=== PATIENT | female | born 1940 | race Caucasian/White ===

== ENCOUNTER 2024-02-02 09:33 | Emergency (ER) | payer OTHER ==
[~2024-02-02] VITALS: Ht 165.1 cm; Wt 90.7 kg
[2024-02-02] MEDS ORDERED: Ketorolac Tromethamine 15mg Vial IM ONE (09:45)
[2024-02-02] MEDS ORDERED: Lidocaine 4% 1 Patch TOP ONE (09:45)
[2024-02-02] MEDS ORDERED: ACET500 PO (10:46)
[2024-02-02] MEDS ORDERED: LIDO700A20 TOP (10:46)
[2024-02-02] MEDS ORDERED: CYCL10 PO (10:46)
== END 2024-02-02 12:22 | disposition home or self-care (01) ==
LOC: ER 09:33
DX: M54.42 Lumbago with sciatica, left side (principal); I10 Essential (primary) hypertension
CPT/HCPCS: 96372; 99283-25; A9270; J1885

== ENCOUNTER → 2024-05-03 | Outpatient (CLI) | payer MEDICARE ==
[~2024-05-03] MED LIST: ACET500 PO; CYCL10 PO; LIDO700A20 TOP
[2024-05-03 11:06] LABS: Source, Urine Voided
[2024-05-03 13:03] LABS: Appearance, Urine Clear (Clear); Bilirubin, Urine Neg (Neg); Blood, Urine Neg (Neg); Glucose Qualitative, Urine Neg (Neg); Ketones, Urine Neg (Neg); Leukocyte Esterase, Urine Neg (Neg); Nitrite, Urine Neg (Neg); Protein, Urine Neg (Neg); Specific Gravity, Urine 1.005 (1.003-1.022); Urobilinogen, Urine NORM (Normal)
[2024-05-03 13:11] LABS: Color, Urine Pale Yellow (P-Yellow)
== END ==
LOC: LAB 11:04 → LAB SHORT 11:04
PROVIDERS: Family Medicine
DX: N39.0 Urinary tract infection, site not specified (principal)
CPT/HCPCS: 81003

== ENCOUNTER 2024-11-27 10:48 | Inpatient (IN) | payer MEDICARE, OTHER ==
[~2024-11-27] VITALS: Ht 165.1 cm; Wt 95.0 kg
[2024-11-27 11:10] VITALS: BP 174/74
[2024-11-27] MEDS ORDERED: HydrALAZINE HCl 20 MG / ML 1ML Vial IV PRN (11:20)
[2024-11-27 11:41] LABS: BASOPHILS ABSOLUTE AUTO 0.04 K/mm3 (0.00-0.23); BASOPHILS PERCENT AUTO 1 % (0-2); EOSINOPHILS ABSOLUTE AUTO 0.14 K/mm3 (0.00-0.68); EOSINOPHILS PERCENT AUTO 2 % (0-6); Hematocrit 35.5 % (33.0-51.0); Hemoglobin 11.7 g/dL (11.5-16.0); IMMATURE GRAN ABSOLUTE AUTO 0.02 K/mm3 (0.00-0.10); IMMATURE GRAN PERCENT AUTO 0 % (0-1); LYMPHOCYTES ABSOLUTE AUTO 1.71 K/mm3 (0.84-5.20); LYMPHOCYTES PERCENT AUTO 21 % (21-46); MONOCYTES ABSOLUTE AUTO 0.66 K/mm3 (0.16-1.47); MONOCYTES PERCENT AUTO 8 % (4-13); Mean Corpuscular HGB Conc 33.0 g/dL (31.5-36.5); Mean Corpuscular Volume 99 fL (80-100); NEUTROPHILS ABSOLUTE AUTO 5.47 K/mm3 (1.96-9.15); NEUTROPHILS PERCENT AUTO 68 % (41-73); NRBC ABSOLUTE 0.00 K/mm3 (0.00-0.02); NRBC Auto 0.0 /100 WBC (0.0-0.2); Platelet Count 204 K/mm3 (150-400); RDW Coefficient Variation 14.3 % (11.7-14.2); RDW Standard Deviation 51.9 fL (35.1-46.3)
[2024-11-27] MEDS ORDERED: ASPI81CH PO (11:43)
[2024-11-27] MEDS ORDERED: ATORVASTATIN CA80 M1 PO (11:44)
[2024-11-27] MEDS ORDERED: LOSA50 PO (11:46)
[2024-11-27] MEDS ORDERED: Flonase 0.05% N16 GM (11:46)
[2024-11-27] MEDS ORDERED: LEVSOD112 PO (11:46)
[2024-11-27] MEDS ORDERED: MAG6464 MG PO (11:48)
[2024-11-27] MEDS ORDERED: NIFE30ER PO (11:48)
[2024-11-27] MEDS ORDERED: NOVOLIN 70100 UNIT/4 SC (11:49)
[2024-11-27] MEDS ORDERED: VITAMIN D350 MC3 PO (11:50)
[2024-11-27] MEDS ORDERED: ONDA4ODT MM (11:51)
[2024-11-27 12:15] LABS: Alanine Aminotransfer (ALT/SGP 19.0 U/L (12-78); Albumin, Blood 3.3 g/dL (3.4-5.0); Albumin/Globulin Ratio 1.0 (0.8-1.8); Anion Gap 6.0 mmol/L (3-11); Aspartate Aminotrans (AST/SGOT 15.0 U/L (12-37); Bilirubin, Total 0.7 mg/dL (0.1-1.0); Blood Urea Nitrogen 28.0 mg/dL (8-24); CO2, Blood 28.0 mmol/L (21-32); Calcium, Blood 9.2 mg/dL (8.5-10.1); Chloride, Blood 111.0 mmol/L (98-108); Creatinine, Blood 1.42 mg/dL (0.40-1.00); Globulin, Blood 3.4 g/dL (2.2-4.0); Glucose, Blood 159.0 mg/dL (70-99); Potassium, Blood 4.1 mmol/L (3.5-5.5); Sodium, Blood 141.0 mmol/L (136-145); Total Protein, Blood 6.7 g/dL (6.4-8.2)
[2024-11-27] MEDS ORDERED: FLU VACC TS2025(65UP)/MF59C/PF 45 MCG/0.5 ML SYRINGE IM SCH (14:00)
[2024-11-27 15:33] VITALS: BP 185/78
--- NOTE | 2024-11-27 15:50 | NUR ---
"Spiritual Care | Pt. request Pt. is awake in bed when she welcomes my visit. Pt. is pleasant but quickly verbalizes that she is [place]. Friends and family are at bedside. Facilitated anintroduction and a life review. Through active listening and empathy considered matters of oralia and belief. Pt. displayed evidence of great trust and grabbed my hand as we prayed together. Pt. and family verbalized gratitude fo rthe spiritual care visit."
[2024-11-27] MEDS ORDERED: Insulin Regular 100 UNIT/ML 10ML Vial SC SCH (16:30)
--- NOTE | 2024-11-27 17:18 | NUR ---
End of shift summary: Patient is alert and oriented x4; pleasant and cooperative with care; very [place] with a hx of Dementia. Patient with Telemetry placed and NSR 70s. IV to LAC placed and patient tolerated well. Patient 1-prsn standby assist to BR utilizing walker. Patient has mixed incontinence and utilizes depends/pull up. Denies SOB, CP, N/V/D or pain since arrival to room. Call light within reach, bed in lowest position. Will continue to monitor until next shift nurse arrives and report is given.
[2024-11-27 19:59] VITALS: BP 122/78
[2024-11-27] MEDS ORDERED: MAGNESIUM CHLORIDE 64 MG PO SCH (21:00)
[2024-11-27] MEDS ORDERED: [UNRECOGNIZED DRUG - OTHER] SC SCH (21:00)
[2024-11-27 23:37] VITALS: BP 126/51
[2024-11-28 03:56] VITALS: BP 146/54
--- NOTE | 2024-11-28 04:04 | NUR ---
SHIFT SUMMARY: PT IS A0X3 AND IS IMPULSIVE. PT REDIRECTED AND EDUCATED MULTIPLE TIMES TO USE CALL LIGHT BEFORE GETTING UP. PT BED ALARM SET WITH PT SETTING IT OFF MULTIPLE TIMES THROUGH OUT THE SHIFT. PT UP TO THE BTHRM SEVERAL TIMES. PT EKG DONE THIS SHIFT PER MD.
[2024-11-28 05:23] LABS: Anion Gap 9.0 mmol/L (3-11); Blood Urea Nitrogen 31.0 mg/dL (8-24); CO2, Blood 26.0 mmol/L (21-32); Calcium, Blood 8.8 mg/dL (8.5-10.1); Chloride, Blood 110.0 mmol/L (98-108); Creatinine, Blood 1.54 mg/dL (0.40-1.00); Glucose, Blood 144.0 mg/dL (70-99); Potassium, Blood 4.3 mmol/L (3.5-5.5); Sodium, Blood 141.0 mmol/L (136-145)
[2024-11-28 05:52] LABS: BASOPHILS ABSOLUTE AUTO 0.04 K/mm3 (0.00-0.23); BASOPHILS PERCENT AUTO 1 % (0-2); EOSINOPHILS ABSOLUTE AUTO 0.22 K/mm3 (0.00-0.68); EOSINOPHILS PERCENT AUTO 3 % (0-6); Hematocrit 36.1 % (33.0-51.0); Hemoglobin 11.5 g/dL (11.5-16.0); IMMATURE GRAN ABSOLUTE AUTO 0.02 K/mm3 (0.00-0.10); IMMATURE GRAN PERCENT AUTO 0 % (0-1); LYMPHOCYTES ABSOLUTE AUTO 1.83 K/mm3 (0.84-5.20); LYMPHOCYTES PERCENT AUTO 23 % (21-46); MONOCYTES ABSOLUTE AUTO 0.74 K/mm3 (0.16-1.47); MONOCYTES PERCENT AUTO 9 % (4-13); Mean Corpuscular HGB Conc 31.9 g/dL (31.5-36.5); Mean Corpuscular Volume 101 fL (80-100); NEUTROPHILS ABSOLUTE AUTO 5.08 K/mm3 (1.96-9.15); NEUTROPHILS PERCENT AUTO 64 % (41-73); NRBC ABSOLUTE 0.00 K/mm3 (0.00-0.02); NRBC Auto 0.0 /100 WBC (0.0-0.2); Platelet Count 207 K/mm3 (150-400); RDW Coefficient Variation 14.1 % (11.7-14.2); RDW Standard Deviation 52.6 fL (35.1-46.3)
[2024-11-28 07:32] VITALS: BP 164/64
[2024-11-28] MEDS ORDERED: Fluticasone 0.05% Nasal Spray SCH (09:00)
[2024-11-28] MEDS ORDERED: Enoxaparin 40 MG/0.4 ML SYR SC SCH (09:00)
[2024-11-28] MEDS ORDERED: Cholecalciferol 1000 Unit Tablet (=25MCG) PO SCH (09:00)
[2024-11-28 11:34] VITALS: BP 171/77
[2024-11-28 15:45] VITALS: BP 171/74
--- NOTE | 2024-11-28 18:04 | NUR ---
END OF SHIFT SUMMARY: PATIENT IS ALERT AND ORIENTED X3-4; IMPULSIVE WITH GETTING OOB; PLEASANT AND COOPERATIVE WITH CARE. PATIENT DENIES SOB, CP OR PRESSURE, N/V/D OR PAIN TODAY. EDEMA TO BLE REDUCED WITH USE OF DIURETICS AND PLAN TO DC HOME MONDAY TO [facility]. PATIENT UTILIZING CALL LIGHT SPORADICALLY; CALL LIGHT WITHIN REACH AND BED IN LOWEST POSITION WITH BED ALARM ON FOR SAFETY. WILL CONTINUE TO MONITOR UNTIL NEXT SHIFT NURSE ARRIVES AND REPORT IS GIVEN.
[2024-11-28 19:29] VITALS: BP 194/81
[2024-11-28 23:25] VITALS: BP 187/85
[2024-11-29] VITALS (7 sets, daily range): BP systolic 143–189; BP diastolic 65–87
--- NOTE | 2024-11-29 04:01 | NUR ---
SHIFT SUMMARY: PT IS AOX3 AND IMPULSIVE. PT EDUCATD TO USE CALL LIGHT WHEN NEEDING TO GET OUT OF BED. BED ALARM SET. PLAN IS FOR PT IS DISCHARGE BACK TO [facility] ON MONDAY PER .
[2024-11-29 04:48] LABS: Anion Gap 6.0 mmol/L (3-11); Blood Urea Nitrogen 37.0 mg/dL (8-24); CO2, Blood 31.0 mmol/L (21-32); Calcium, Blood 9.0 mg/dL (8.5-10.1); Chloride, Blood 105.0 mmol/L (98-108); Creatinine, Blood 1.63 mg/dL (0.40-1.00); Glucose, Blood 104.0 mg/dL (70-99); Potassium, Blood 3.8 mmol/L (3.5-5.5); Sodium, Blood 138.0 mmol/L (136-145)
[2024-11-29] MEDS ORDERED: Enoxaparin 30 MG/0.3 ML SYR SC SCH (09:00)
[2024-11-29] MEDS ORDERED: Insulin Isoph 70 / Reg 30 100 Unit/ML 10ML Vial SC SCH ×2 (10:00→21:00)
--- NOTE | 2024-11-29 15:44 | NUR ---
FOUND A DROPPED PILL- FAMILY WAS WITH THE PT AND FOUND A PILL. IT APPEARS TO BE A 5MG AMLODIPINE. CALLED DR NELSON TO NOTIFY, PT SBP 170'S AT THIS TIME. ORDER TO GIVE ADDITIONAL DOSE OF 5MG AMLODIPINE NOW.
--- NOTE | 2024-11-29 20:13 | NUR ---
SHIFT SUMMARY- PT ALERT AND ORIENTED BUT FORGETFUL AND [place]. PT SITTING UP IN THE CHAIR AT THE TIME OF BEDSIDE REPORT. PT ASSISTED BACK TO BED AND 1800 LASIX GIVEN. NIGHT RN AWARE. PT IN BED, CALL LIGHT IN REACH NO S&S OF DISTRESS NOTED. PLAN IS TO KEEP PT THROUGH THE WEEKEND AND DC ON MONDAY BACK TO [facility].
[2024-11-30] VITALS (8 sets, daily range): BP systolic 112–187; BP diastolic 59–104
--- NOTE | 2024-11-30 04:16 | NUR ---
SHIFT SUMMARY PATIENT HAD NO ACUTE CHANGES. AXO X 3 AND FORGETFUL. DENIES CHEST PAIN, SOB, AND N/V. VSS/AFEBRILE. PIV INTACT. TELE MONITOR SR 76. CBG 178. [place] WITH NO HEARING AIDS. SLEPT MOST OF THE SHIFT. CALL LIGHT IN REACH. BED IN LOWEST POSITION. WILL CONTINUE TO MONITOR UNTIL DAY SHIFT NURSE ASSUMES CARE.
[2024-11-30 05:48] LABS: Anion Gap 9.0 mmol/L (3-11); Blood Urea Nitrogen 43.0 mg/dL (8-24); CO2, Blood 31.0 mmol/L (21-32); Calcium, Blood 9.0 mg/dL (8.5-10.1); Chloride, Blood 102.0 mmol/L (98-108); Creatinine, Blood 2.13 mg/dL (0.40-1.00); Glucose, Blood 154.0 mg/dL (70-99); Potassium, Blood 3.7 mmol/L (3.5-5.5); Sodium, Blood 138.0 mmol/L (136-145)
--- NOTE | 2024-11-30 16:21 | NUR ---
SHIFT SUMMARY- PT ALERT AND ORIENTED X3. SHE IS VERY FORGETFUL AND HAS POOR SHORT TERM MEMORY, SHE USES HER CALL LIGHT APPROPRIATELY, CALL LIGHT IS IN REACH, SHE IS A SBA TO THE BATHROOM. PLAN IS FOR HER TO DISCHARGE HOME TO HER FACILITY, [facility], MONDAY. PT IN BED, NO S&S OF DISTRESS NOTED AT THIS TIME.
[2024-12-01 04:35] VITALS: BP 136/55
[2024-12-01 06:12] LABS: Anion Gap 8.0 mmol/L (3-11); Blood Urea Nitrogen 55.0 mg/dL (8-24); CO2, Blood 31.0 mmol/L (21-32); Calcium, Blood 8.7 mg/dL (8.5-10.1); Chloride, Blood 100.0 mmol/L (98-108); Creatinine, Blood 2.17 mg/dL (0.40-1.00); Glucose, Blood 109.0 mg/dL (70-99); Potassium, Blood 3.6 mmol/L (3.5-5.5); Sodium, Blood 135.0 mmol/L (136-145)
--- NOTE | 2024-12-01 06:52 | NUR ---
SHIFT SUMMARY AT START OF SHIFT, PT LYING IN BED. SHE IS IN A PLEASANT MOOD. ASKING ABOUT MOVING THE CHAIR IN HER ROOM. DAY SHIFT RN EXPLAINED TO PT THAT CHAIR NEEDED TO BE IN LOCATION IT WAS FOR HER SAFETY, SO THE CHAIR ALARM COULD BE ON, AND SO SHE DIDN T HAVE A LOT OF FURNITURE TO GET AROUND IF SHE NEEDED TO USE THE BATHROOM. PT COOPERATIVE WITH CARE. AFTER NIGHT MEDS, PT TURNED OFF LIGHT AND TV AND WENT TO SLEEP. PT SLEPT THROUGHOUT SHIFT, WAKING FOR MORNING FOR MEDICATION PASS.
[2024-12-01 07:28] VITALS: BP 146/56
--- NOTE | 2024-12-01 16:40 | NUR ---
SHIFT SUMMARY NO ACUTE CHANGES, VITALS STABLE, A/Ox2. ABLE TO MAKE NEEDS KNOWN. BED ALARM ON DUE TO IMPULSIVENESS. PT DENIES PAIN. GOOD ORAL INTAKE. POSSIBLE DC TOMORROW. TELE MONITOR IN PLACE. PT CURRENTLY RESTING IN BED WITH BED IN LOWEST POSITION, BED ALARM ON AND CALL LIGHT IN REACH. PT APPEARS TO BE IN NO DISTRESS.
[2024-12-01 17:17] VITALS: BP 168/80
[2024-12-01 19:24] VITALS: BP 138/46
[2024-12-01 23:27] VITALS: BP 123/62
--- NOTE | 2024-12-02 04:04 | NUR ---
SHIFT SUMMARY PATIENT HAD NO ACUTE CHANGES. ALERT ORIENTED 2-3 AMD EXTREMELY [place]. ONE ASSIST W/FWW TO BR. CBG 208. DENIES CHEST PAIN, SOB, AND N/V. VSS/AFEBRILE. PIV INTACT. TELE MONITOR NSR 96. SLEPT MOST OF THE SHIFT. CALL LIGHT IN REACH. BED IN LOWEST POSITION. WILL CONTINUE TO MONITOR UNTIL DAY SHIFT NURSE ASSUMES CARE.
[2024-12-02 04:52] VITALS: BP 152/57
[2024-12-02 05:48] LABS: Anion Gap 9.0 mmol/L (3-11); Blood Urea Nitrogen 50.0 mg/dL (8-24); CO2, Blood 29.0 mmol/L (21-32); Calcium, Blood 9.2 mg/dL (8.5-10.1); Chloride, Blood 101.0 mmol/L (98-108); Creatinine, Blood 1.94 mg/dL (0.40-1.00); Glucose, Blood 158.0 mg/dL (70-99); Potassium, Blood 3.8 mmol/L (3.5-5.5); Sodium, Blood 135.0 mmol/L (136-145)
[2024-12-02 07:58] VITALS: BP 187/68
[2024-12-02] MEDS ORDERED: AMLO5 PO (10:50)
[2024-12-02] MEDS ORDERED: Acetaminophen650 M1 PO (10:51)
[2024-12-02] MEDS ORDERED: JARDIANCE10 MG PO (10:51)
--- NOTE | 2024-12-02 11:17 | NUR ---
DISCHARGE NOTE PT FORGETFUL AT TIMES, HX OF DEMENTIA. PT ADMITTED DUE TO CHF AND HTN URGENCY. PT ACHS. EDEMA IN LEGS IMPROVED PER NIGHT RN. PT REPORTS NO CHEST PAIN OR SOB OR GEN PAIN. PT BP ELEVATED THIS AM. LESLIE MAZA NOTIFIED. REPORTED BP POST AM MEDS TO DR. NELSON, LAST BP WAS 165/69. DR. NELSON REPORTED OK FOR DISCHARGE. THIS RN COMPLETED DISCHARGE IV AND TELE D/C. HARD SCRIPT IN [place]. COPY IN CHART. SON IN LAW CAME TO TRANSPORT PT TO [facility]. CALLED RN AT [facility] AND GAVE REPORT. CASE MANAGEMENT INVOLVED. WENT OVER DISCHARGE INSTRUCTIONS AND MEDS WITH PT AND PT FAMILY. PT TOOK ALL PERSONAL BELONGINGS INCLUDING WALKER. PT ESCORTED VIA WHEELCHAIR TO ENTERANCE.
== END 2024-12-02 11:09 | disposition home or self-care (01) | DRG 291 ==
LOC: MEDS 10:48 → ENPENDDIS 12-02 10:05 → MEDS 12-02 11:09
PROVIDERS: ADMIT Family Medicine
DX: I13.0 Hypertensive heart and chronic kidney disease with heart failure and stage 1 through stage 4 chronic kidney disease, or unspecified chronic kidney disease (principal); I50.21 Acute systolic (congestive) heart failure; N17.9 Acute kidney failure, unspecified; N18.30 Chronic kidney disease, stage 3 unspecified; Z66 Do not resuscitate; I16.0 Hypertensive urgency; H91.90 Unspecified hearing loss, unspecified ear; E03.9 Hypothyroidism, unspecified; E11.22 Type 2 diabetes mellitus with diabetic chronic kidney disease; Z87.440 Personal history of urinary (tract) infections; I12.9 Hypertensive chronic kidney disease with stage 1 through stage 4 chronic kidney disease, or unspecified chronic kidney disease; Z86.73 Personal history of transient ischemic attack (TIA), and cerebral infarction without residual deficits; Z90.710 Acquired absence of both cervix and uterus; Z90.49 Acquired absence of other specified parts of digestive tract; F03.90 Unspecified dementia, unspecified severity, without behavioral disturbance, psychotic disturbance, mood disturbance, and anxiety; Z87.891 Personal history of nicotine dependence; Z79.82 Long term (current) use of aspirin; Z79.4 Long term (current) use of insulin; Z79.890 Hormone replacement therapy; Z79.899 Other long term (current) drug therapy
CPT/HCPCS: 36415; 71045; 76770; 80048; 80053; 82947; 83036; 83880; 84439; 84443; 84481; 85025; 93306; 93970; A9270; J1650; J1938